=== PATIENT | female | born 1995 | race Caucasian/White ===

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

== ENCOUNTER 2017-05-20 10:34 | Outpatient (CLI) | payer MEDICAID ==
[~2017-05-20] VITALS: Ht 162.6 cm; Wt 61.8 kg
[~2017-05-20 10:34] MED LIST: PRENATAL PO
[2017-05-20 10:48] VITALS: BP 110/78; PULSE 107
[2017-05-20 10:54] VITALS: BP 110/78; PULSE 107; TEMP 98.1
[2017-05-20 11:15] VITALS: BP 108/69; PULSE 88
[2017-05-20 11:44] VITALS: PULSE 82
== END 2017-05-20 11:46 | disposition home or self-care (01) ==
LOC: LDRO 10:34 → LDR 10:48 → LDRO 11:46
DX: O62.2 Other uterine inertia (principal); Z3A.33 33 weeks gestation of pregnancy
CPT/HCPCS: OP